=== PATIENT | female | born 1955 | race Caucasian/White ===

== ENCOUNTER 2018-07-15 12:17 | Day surgery (SDC) | payer BC, OTHER ==
[~2018-07-15] VITALS: Ht 162.6 cm; Wt 65.3 kg
[2018-07-15 13:10] VITALS: Ht 162.6 cm; Wt 65.3 kg
[2018-07-15] MEDS ORDERED: CHOLESTEROL MED (13:20)
[2018-07-15] MEDS ORDERED: LEVOTHYROXINE PO (13:20)
[2018-07-15 13:25] VITALS: BP 103/51; PULSE 67; RESP 19
--- NOTE | 2018-07-15 13:29 | PREAC ---
Date/Time of Note Date/Time of Note DATE: 07/15/18 TIME: 13:28 Anesthesia Eval and Record Evaluation Time Pre-Procedure Interview DATE: 07/15/18 TIME: 13:28 Age 62 Sex female NPO: 8 hrs Preoperative diagnosis screening Planned procedure colonoscopy Past Medical History Past Medical History: Includes Cardio: Dyslipidemia Endo: Hypothyroid Surgery & Anesthesia Issues No known issue Meds Anticoagulation: No Beta Pj within 24 hr: No Reason Beta Pj not given: Pt. not on B-Pj Reported Medications [Cholesterol Med] No Conflict Check 07/15/18 [Levothyroxine] No Conflict Check, PO 07/15/18 Meds reviewed: Yes Allergies Coded Allergies: celecoxib (Verified Allergy, Unknown, 07/15/18) Allergies Reviewed: Yes Labs/Studies Labs Reviewed: Reviewed by anesthesiologist test: N/A Studies: ECG (n/a), CXR (n/a) Pre-procedure Exam Airway: Adequate mouth opening Mallampati: Mallampati I Teeth: Normal Lung: Normal Heart: Normal ASA Physical Status ASA physical status: 2 Emergency: None Planned Anesthetic General/MAC: MAC Planned Pain Management Parenteral pain med Pre-operative Attestations Prior to commencing anesthesia and surgery, the patient was re-evaluated, there was verification of: *The patient's identity *The results of appropriate recent lab work and preoperative vital signs *The above evaluation not changing prior to induction *Anesthetic plan, risk benefits, alternative and complications discussed with patient/family; questions answered; patient/family understands, accepts and wishes to proceed. GUERITA FELIX MD Jul 15, 2018 13:29
[2018-07-15] MEDS ORDERED: ONDANSETRON 4 MG INJ IV PRN (13:30)
[2018-07-15] MEDS ORDERED: PROPOFOL 20 ML ONE (13:35)
[2018-07-15 13:55] VITALS: BP 151/75; PULSE 64; RESP 18
--- NOTE | 2018-07-15 14:00 | HPN ---
Date/Time of Note Date/Time of Note DATE: 07/15/18 TIME: 13:58 Interval H&P Admission Note Pt. seen H&P reviewed: No system changes STEVEN SOTOMAYOR Jul 15, 2018 14:00
[2018-07-15 14:30] VITALS: BP 104/58; PULSE 61; RESP 12
--- NOTE | 2018-07-15 18:28 | PAC ---
Date/Time of Note Date/Time of Note DATE: 07/15/18 TIME: 18:28 Post-Anesthesia Notes Post-Anesthesia Note Last documented vital signs Vital Signs Date Temp Pulse Resp B/P (MAP) Pulse Ox O2 O2 Flow FiO2 Time Delivery Rate 07/15/18 97.9 61 12 104/58 99 Room Air 14:30 (73) 07/15/18 97.8 13:25 Activity: WNL Respiratory function: WNL Cardiovascular function: WNL Mental status: Baseline Pain reasonably controlled: Yes Hydration appropriate: Yes Nausea/Vomiting absent: No GUERITA FELIX MD Jul 15, 2018 18:28
== END 2018-07-15 14:25 | disposition home or self-care (01) ==
LOC: GIL 12:17
PROVIDERS: ATTEND Internal Medicine Gastroenterology
DX: Z12.11 Encounter for screening for malignant neoplasm of colon (principal); K59.09 Other constipation; E78.00 Pure hypercholesterolemia, unspecified; Z80.0 Family history of malignant neoplasm of digestive organs